=== PATIENT | female | born 1995 | race Caucasian/White ===

== ENCOUNTER 2023-05-23 06:05 | Emergency (ER) | payer OTHER, SELFPAY ==
--- NOTE | 2023-05-23 06:06 | ED_ITS ---
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 The needle had been used. The source patient has previously had hepatitis and HIV screening prior to coming in for OB care. Patient is unsure of last tetanus Onset (ago): minute(s) Associated symptoms: Deny rash Review of Systems Skin/Breast: Denies: rash, pruritus, erythema, skin pain, skin tenderness or sores Physical Exam Const: COMMON NORMALS: no acute distress GENERAL APPEARANCE: cooperative and comfortable ORIENTATION/CONSCIOUSNESS: Yes awake, Yes oriented to person, Yes oriented to place and Yes oriented to time Neuro: SENSORIUM/ORIENTATION: Yes oriented to person, Yes oriented to place and Yes oriented to time Skin: OTHER: Small puncture wound in the dorsum on the right fifth finger overlying the proximal phalanx. No bleeding no redness no erythema no induration no hematoma Course Vital Signs: Vital signs: Vital Signs Temperature 98 F 05/23/23 06:16 Pulse Rate 89 05/23/23 06:16 Respiratory Rate 14 05/23/23 06:16 Blood Pressure 145/88 05/23/23 06:16 Pulse Oximetry 99 05/23/23 06:16 Oxygen Delivery Me thod Room Air 05/23/23 06:16 MDM - General Adult Medical Decision Making Source patient had been screened as part of routine OB care and is reported to be negative. Routine testing done here for initial. Discussed with the patient given the very low risk she opted not to do HIV prophylaxis. At this point given the fact the patient will has been prescreened and was negative side effects the medications outweigh benefits. Recommend patient may return to work without restrictions follow-up with employee health per protocol should be within approximately 1 month for repeat testing. Medical Records I reviewed the patient's medical records. Lab Data I reviewed the patient's lab results. 05/23/23 06:26 05/23/23 06:26 Laboratory Results WBC 6.50 10^3/uL (3.29-11.43) 05/23/23 06:26 RBC 4.07 10^6/uL (3.85-5.65) 05/23/23 06: Hgb 12.20 g/dL (11.27-16.99) 05/23/23 06: Hct 37.6 % (36-47) 05/23/23 06: MCV 92.4 fl (85-98) 05/23/23 06: MCH 30.0 pg (27-33) 05/23/23 06: MCHC 32.4 g/dL (30-55) 05/23/23 06: RDW 12.2 % (12.1-15.1) 05/23/23 06: Plt Count 247 10^3/cmm (157-399) 05/23/23 06: MPV 10.8 fL (7.4-10.4) H 05/23/23 06: Neut % (Auto) 58.3 % 05/23/23 06: Lymph % (Auto) 29.5 % 05/23/23 06: Leon % (Auto) 10.6 % 05/23/23 06: Eos % (Auto) 1.1 % 05/23/23 06: Baso % (Auto) 0.2 % 05/23/23 06: Neut # (Auto) 3.79 10^3/uL (1.8-7.7) 05/23/23 06: Lymph # (Auto) 1.9 10^3/uL (0.8-4.8) 05/23/23 06: Leon # (Auto) 0.7 10^3/uL (0.2-0.9) 05/23/23 06: Eos # (Auto) 0.1 10^3/uL (0.0-0.8) 05/23/23 06: Baso # (Auto) 0.0 10^3/uL (0.0-0.1) 05/23/23 06: Nucleated RBC % (auto) 0 % 05/23/23 06: Nucleated RBCs # 0.0 /100WBC 05/23/23 06:26 Sodium 134 mmol/L (136-145) L 05/23/23 06: Potassium 3.6 mmol/L (3.5-5.1) 05/23/23 06: Chloride 101 mmol/L (98-107) 05/23/23 06:26 Carbon Dioxide 25 mmol/L (22-29) 05/23/23 06:26 Anion Gap 11.6 (5-19) 05/23/23 06:26 BUN 16 mg/dL (6-20) 05/23/23 06:26 Creatinine 0.7 mg/dL (0.5-0.9) 05/23/23 06:26 GFR Calculation 99.6 mL/min (90-130) 05/23/23 06:26 Glucose 96 mg/dL (65-115) 05/23/23 06:26 Calculated Osmolality 279 mOsm/kg (285-295) L 05/23/23 06:26 Calcium 8.9 mg/dL (8.5-10.5) 05/23/23 06:26 Total Bilirubin 0.2 mg/dL (0.15-1.2) 05/23/23 06:26 AST 16 U/L (0-32) 05/23/23 06:26 ALT 21 U/L (0-33) 05/23/23 06:26 Alkaline Phosphatase 72 U/L (35-105) 05/23/23 06:26 Total Protein 8.0 g/dL (6.6-8.7) 05/23/23 06:26 Albumin 4.3 g/dL (3.5-5.2) 05/23/23 06:26 Globulin 3.7 g/dL (1.3-4.6) 05/23/23 06:26 Discharge Plan Discharge Patient Disposition: Home Clinical Impression: Needle stick injury of finger of right hand Condition: Stable Discharge Orders: Discharge ED (Routine); Ordered 05/23/23 Ordered By: Benjamin Winter Referrals: Baljinder Ghotra MD [Referring] - Discharge Diet: Usual diet Discharge Activity: Resume usual activity Patient Instructions: Opioid Safety, Pain Management Coding Level of Care Code ED Manager Community Development for Felix Stewart
[2023-05-23 06:16] VITALS: BP 145/88; PULSE 89; RESP 14; TEMP 36.6; O2SAT 99; BMI 29.2
[2023-05-23 06:34] LABS: Basophils % 0.2 %; Eosinophils # 0.1 10^3/uL (0.0-0.8); Eosinophils % 1.1 %; Hematocrit 37.6 % (36-47); Lymphocytes # 1.9 10^3/uL (0.8-4.8); Lymphocytes % 29.5 %; Mean Corpuscular HGB Conc 32.4 g/dL (30-55); Mean Corpuscular Volume 92.4 fl (85-98); Mean Platelet Volume 10.8 fL (7.4-10.4); Monocytes # 0.7 10^3/uL (0.2-0.9); Monocytes % 10.6 %; Neutrophils # 3.79 10^3/uL (1.8-7.7); Neutrophils % 58.3 %; Nucleated Red Blood Cells % 0 %; Platelet Count 247 10^3/cmm (157-399); Red Blood Count 4.07 10^6/uL (3.85-5.65); Red Cell Distribution Width 12.2 % (12.1-15.1)
[2023-05-23 06:52] LABS: Alanine Aminotransferase 21 U/L (0-33); Albumin Level 4.3 g/dL (3.5-5.2); Alkaline Phosphatase 72 U/L (35-105); Anion Gap 11.6 (5-19); Aspartate Amino Transferase 16 U/L (0-32); Blood Urea Nitrogen 16 mg/dL (6-20); Calcium 8.9 mg/dL (8.5-10.5); Carbon Dioxide 25 mmol/L (22-29); Chloride 101 mmol/L (98-107); Globulin 3.7 g/dL (1.3-4.6); Glomerular Filtration Rate 99.6 mL/min (90-130); Glucose 96 mg/dL (65-115); Osmolality Calculated 279 mOsm/kg (285-295); Potassium 3.6 mmol/L (3.5-5.1); Sodium 134 mmol/L (136-145); Total Bilirubin 0.2 mg/dL (0.15-1.2)
[2023-05-23] MEDS: tetanus-dipt-pertussis 0.5 mL SDV IM (07:02)
[2023-05-23 07:31] LABS: Hepatitis A Antibody IgM Non-Reactive (Nonreactive); Hepatitis B Core IgM Non-Reactive (Nonreactive); Hepatitis B Surface Antigen Non-Reactive (Nonreactive); Hepatitis C Virus Antibody Non-Reactive (Nonreactive)
[2023-05-23 07:35] LABS: HIV 1 & 2 Antibody Non-Reactive (Non-Reactiv); HIV 1 & 2 Antigen Non-Reactive (Non-Reactiv)
== END 2023-05-23 07:15 | disposition home or self-care (01) ==
PROVIDERS: Emergency Provider Family Medicine
DX: S69.81XA Other specified injuries of right wrist, hand and finger(s), initial encounter (principal); W46.0XXA Contact with hypodermic needle, initial encounter; Z23 Encounter for immunization
CPT/HCPCS: 36415; 80053; 80074; 85025; 87806; 90471; 90715; 99283